=== PATIENT | male | born 1985 | race African-American/Black ===

== ENCOUNTER 2017-10-09 12:11 | Emergency (ER) | payer OTHER ==
[~2017-10-09] VITALS: Ht 180.3 cm; Wt 89.8 kg
[~2017-10-09 12:11] MED LIST: IBUPROFEN600 MG ORAL; NKM
[2017-10-09 12:46] VITALS: BP 135/88
--- NOTE | 2017-10-09 13:54 | Emergency Room Report ---
History of Present Illness General Chief Complaint: General Complaint Source: Patient Present Illness HPI 32 -year-old male presents to the emergency department complaining of intermittent bilateral knee pain 3 years. Patient reports that he'll be awoken from sleep with pain that he locates as "deep inside of his knee joint " he denies swelling he denies appreciable trauma or fall denies erythema or increased temperature palpation. Denies fevers, chills,or history of gout. Patient was seen once before several years ago in the emergency department for his symptoms and was told that he might have some arthritis and needs to follow- up with a specialist. Patient states that his primary care provider did not fully evaluate him and did not refer him to specialist. Patient states that he continues to have symptoms and on occasion he'll also get some numbness and tingling in the bilateral knees. Patient denies low back pain or pain elsewhere on the extremities such as his thigh or calf. 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 Denies loss of gross motor movements of the extremities, incontinence of bowel or bladder. Denies CP, Palpitations, LOC, AMS, dizziness, Changes in Vision, paresthesias, or a sudden severe headache. Allergies: Coded Allergies: No Known Allergies (Unverified , 12/09/15) Patient History Past Medical History: see triage record Past Surgical History: none Pertinent Family History: none Immunizations: UTD Reviewed Nursing Documentation: PMH: Agreed; PSxH: Agreed Nursing Documentation-PM Past Medical History: No Stated History Review of Systems All Other Systems: negative except mentioned in HPI Physical Exam Vital Signs Date Time Temp Pulse Resp B/P (MAP) Pulse Ox O2 Delivery O2 Flow Rate FiO2 10/09/17 12:40 98.2 68 19 135/88 99 Room Air 98.2 Sp02 EP Interpretation: reviewed, normal General Appearance: no apparent distress, alert, GCS 15, non-toxic Head: normocephalic, atraumatic ENT: hearing grossly normal, normal voice Neck: full range of motion Respiratory: lungs clear, normal breath sounds, speaking full sentences Cardiovascular #1: regular rate, rhythm, no edema Rectal: deferred Musculoskeletal: back normal, gait/station normal, normal range of motion, non- tender, other - no obvious swelling, deformity, erythema, increased temperature to palpation. no increased laxity. no clicking Neurologic: alert, oriented x3, responsive, motor strength/tone normal, sensory intact, speech normal, grossly normal Psychiatric: judgement/insight normal Skin: normal color, no rash, warm/dry, well hydrated Medical Decision Making GRAY Attestation Dr. Montanez is my supervising Physician whom patient management has been discussed with. Diagnostic Impression: Primary Impression: Knee pain, bilateral Qualified Codes: M25.561 - Pain in right knee; M25.562 - Pain in left knee; G89.29 - Other chronic pain ER Course 32 -year-old male presents to the emergency department complaining of intermittent bilateral knee pain 3 years. Patient reports that he'll be awoken from sleep with pain that he locates as "deep inside of his knee joint " he denies swelling he denies appreciable trauma or fall denies erythema or increased temperature palpation. Denies fevers, chills,or history of gout. Patient was seen once before several years ago in the emergency department for his symptoms and was told that he might have some arthritis and needs to follow- up with a specialist. Patient states that his primary care provider did not fully evaluate him and did not refer him to specialist. Patient states that he continues to have symptoms and on occasion he'll also get some numbness and tingling in the bilateral knees. Patient denies low back pain or pain elsewhere on the extremities such as his thigh or calf. 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 Denies loss of gross motor movements of the extremities, incontinence of bowel or bladder. Denies CP, Palpitations, LOC, AMS, dizziness, Changes in Vision, paresthesias, or a sudden severe headache. Ddx considered but are not limited to Fracture, dislocation, contusion, Sprain/ Strain/Spasm, Septic joint, gout, arthritis, ligamental or meniscal injury just to name a few. Vital signs: are WNL, pt. is afebrile H&PE are most consistent with musculoskeletal injury will perform imaging to r/ o fractures/dislocations. ORDERS: - X-ray's 3 views of both Right and Left KNEE's - negative for fx, Dislocation, or significant soft tissue injury, per preliminary read in ED, and signed by GRAY Gunn, my supervising physician has reviewed, and agrees with my interpretation. ED INTERVENTIONS: - none required at this time. DISCHARGE: At this time pt. is stable for d/c to home. Will provide printed patient care instructions, and any necessary prescriptions. Care plan and follow up instructions have been discussed with the patient prior to discharge. Other X-Ray Diagnostic Results Other X-Ray Diagnostic Results #1: X-Ray ordered: Right KNEe # of Views/Limited Vs Complete: 3 View Indication: Pain EP Interpretation: Yes PA Xray: Interpretation reviewed, by supervising MD Mitra Martínez reviewed. , and agrees with findings. Interpretation: no dislocation, no soft tissue swelling, no fractures Impression: No acute disease Electronically Signed by: Erendira Gunn PA-C Other X-Ray Diagnostic Results #2: X-Ray ordered: Left knee # of Views/Limited Vs Complete: 3 View Indication: Pain EP Interpretation: Yes PA Xray: Interpretation reviewed, by supervising MD Mitra Martínez reviewed. , and agrees with findings. Interpretation: no dislocation, no soft tissue swelling, no fractures Impression: No acute disease Electronically Signed by: Erendira Gunn PA-C Last Vital Signs Date Time Temp Pulse Resp B/P (MAP) Pulse Ox O2 Delivery O2 Flow Rate FiO2 10/09/17 12:46 98.2 68 19 135/88 99 Room Air 98.2 Disposition: HOME, SELF-CARE Condition: Stable Scripts Naproxen* (NAPROXEN*) 500 Mg Tablet. 500 MG ORAL TWICE A DAY for 7 Days, #14 TAB Prov: Erendira Gunn 10/09/17 Referrals: [facility],REFERRING (PCP) Patient Instructions: Knee Pain Additional Instructions: Take medications as directed. Recommend ORTHOPEDIC referral for further evaluation and studies. Follow up with a Primary Care Provider in 3-5 days, even if your symptoms have resolved. --Please review list of primary care clinics, if you do not already have a primary care provider Return sooner to ED if new symptoms occur, or current symptoms become worse. - Please note that this Emergency Department Report was dictated using [employer] technology software, occasionally this can lead to erroneous entry secondary to interpretation by the dictation equipment. Erendira Gunn October 09, 2017 13:54
[2017-10-09] MEDS ORDERED: NAPROXEN500 M1 ORAL (13:55)
[2017-10-09 13:57] VITALS: BP 130/82
--- NOTE | 2017-10-09 14:16 | Diagnostic Imaging Report ---
Indication: Pain 3 views of the left knee were obtained. Findings: No acute fracture, malalignment, or joint effusion are identified. Joint space is relatively well-maintained. Impression: Negative for acute injury
--- NOTE | 2017-10-09 14:16 | Diagnostic Imaging Report ---
Indication: Pain Knee pain/trauma 3 views of the right knee were obtained. Findings: No acute fracture, malalignment, or joint effusion are identified. Joint space is relatively well-maintained. Impression: Negative for acute findings.
== END 2017-10-09 14:00 | disposition home or self-care (01) ==
LOC: EMR 13:14
DX: M25.561 Pain in right knee (principal); M25.562 Pain in left knee; G89.29 Other chronic pain
CPT/HCPCS: 99284